=== PATIENT | female | born 1940 | race Caucasian/White ===

== ENCOUNTER 2016-08-15 13:42 | Inpatient (IN) ==
[2016-08-15] MEDS ORDERED: Ondansetron 4 MG/2 ML VIAL ONE (13:55)
[2016-08-15] MEDS ORDERED: *HR* FentaNYL (PF) 100 MCG/2 ML VIAL ONE (13:55)
[2016-08-15] MEDS ORDERED: *HR* Propofol 200 MG/20 ML VIAL IVP ONE (13:55)
[2016-08-15] MEDS ORDERED: Lidocaine -MPF 2% 2 ML VIAL ONE (13:55)
[2016-08-15] MEDS ORDERED: Lidocaine 1% 20 ML MDV ID ONE (13:57)
[2016-08-15] MEDS ORDERED: CeFAZolin Pre 2,000 MG/100 ML 2,000 MG/100 ML BAG IVPB ONE (13:57)
[2016-08-15] MEDS ORDERED: *HR* Labetalol 100 MG/20 ML MDV IVP PRN (13:58)
[2016-08-15] MEDS ORDERED: Ondansetron 4 MG/2 ML VIAL IVP ONE ×2 (13:58→16:43)
[2016-08-15] MEDS ORDERED: *HR* HYDROmorphone (PF) 1 MG/ML SYRINGE IVP PRN ×2 (13:58→18:21)
[2016-08-15] MEDS ORDERED: Ringers Solution, Lactated 1,000 ML IVC SCH ×2 (14:00→18:21)
[2016-08-15] MEDS ORDERED: *HR* Midazolam HCl 2 MG/2 ML VIAL ONE (15:07)
[2016-08-15] MEDS ORDERED: Tetracaine/PF 20 MG/2 ML AMPUL SPINA ONE (15:11)
[2016-08-15] MEDS ORDERED: Famotidine 20 MG/2 ML VIAL ONE (15:34)
[2016-08-15] MEDS ORDERED: Ketorolac 30 MG/ML VIAL ONE (16:28)
[2016-08-15] MEDS ORDERED: *HR* HYDROmorphone (PF) 1 MG/ML SYRINGE ONE (17:14)
[2016-08-15] MEDS: *HR* HYDROmorphone (PF) 1 MG/ML SYRINGE IVP PRN ×2 (17:15→17:20)
[2016-08-15 17:46] LABS: Hematocrit 41.8 % (35.3-44.9); Hemoglobin 13.9 g/dL (11.5-15.4)
[2016-08-15] MEDS ORDERED: Sennosides 8.6 MG TABLET PO PRN (18:21)
[2016-08-15] MEDS ORDERED: Naloxone 0.4 MG/ML INJ IVP PRN (18:21)
[2016-08-15] MEDS ORDERED: Ondansetron 4 MG/2 ML VIAL IVP PRN (18:21)
[2016-08-15] MEDS ORDERED: MOM Conc 10 ML UD.LIQ PO PRN (18:21)
[2016-08-15] MEDS ORDERED: Acetaminophen 325 MG TABLET PO PRN (18:21)
[2016-08-15] MEDS ORDERED: *HR* OxyCODONE Immed Rel 5 MG TABLET PO PRN (18:21)
[2016-08-15] MEDS ORDERED: Temazepam 15 MG CAPSULE PO PRN (18:21)
[2016-08-15] MEDS ORDERED: *HR* Enoxaparin 30 MG/0.3 ML SYRINGE SQ SCH (19:00)
[2016-08-15] MEDS: *HR* Enoxaparin 30 MG/0.3 ML SYRINGE SQ SCH (19:53)
[2016-08-16] MEDS: ceFAZolin 2,000 MG in D5% in Water 100 ML IVPB SCH ×2 (00:11→07:43)
[2016-08-16 03:35] LABS: Hematocrit 34.4 % (35.3-44.9)
[2016-08-16 03:38] LABS: Hemoglobin 11.8 g/dL (11.5-15.4)
[2016-08-16 03:48] LABS: BUN/Creatinine Ratio 27 (6-26); Blood Urea Nitrogen 25 mg/dL (7-20); Calcium 8.7 mg/dL (8.6-10.8); Carbon Dioxide 24 mEq/L (19-29); Chloride 100 mEq/L (98-109); Glucose 134 mg/dL (70-99); Osmolality,Calculated 284 (280-300); Potassium 4.2 mEq/L (3.5-4.5); Sodium 134 mEq/L (136-145); eGFR For African Americans > 60 (> 60); eGFR For Non-African Americans > 60 (> 60)
[2016-08-16] MEDS: *HR* Enoxaparin 30 MG/0.3 ML SYRINGE SQ SCH ×2 (05:49→17:58)
[2016-08-16] MEDS: *HR* OxyCODONE Immed Rel 5 MG TABLET PO PRN ×4 (07:42→20:55)
[2016-08-16] MEDS: hydroCHLOROthiazide 25 MG TABLET PO SCH (07:42)
[2016-08-17] MEDS: *HR* OxyCODONE Immed Rel 5 MG TABLET PO PRN ×5 (04:17→21:28)
[2016-08-17] MEDS: *HR* Enoxaparin 30 MG/0.3 ML SYRINGE SQ SCH ×2 (04:18→18:02)
[2016-08-17 04:22] LABS: Hematocrit 31.4 % (35.3-44.9); Hemoglobin 10.9 g/dL (11.5-15.4)
[2016-08-17 04:39] LABS: BUN/Creatinine Ratio 26 (6-26); Blood Urea Nitrogen 21 mg/dL (7-20); Calcium 8.1 mg/dL (8.6-10.8); Carbon Dioxide 26 mEq/L (19-29); Chloride 98 mEq/L (98-109); Glucose 135 mg/dL (70-99); Osmolality,Calculated 281 (280-300); Potassium 3.8 mEq/L (3.5-4.5); Sodium 133 mEq/L (136-145); eGFR For African Americans > 60 (> 60); eGFR For Non-African Americans > 60 (> 60)
[2016-08-17] MEDS: hydroCHLOROthiazide 25 MG TABLET PO SCH (07:25)
[2016-08-18] MEDS: *HR* OxyCODONE Immed Rel 5 MG TABLET PO PRN ×3 (02:41→10:36)
[2016-08-18] MEDS: *HR* Enoxaparin 30 MG/0.3 ML SYRINGE SQ SCH (06:36)
[2016-08-18] MEDS: hydroCHLOROthiazide 25 MG TABLET PO SCH (09:20)
[2016-08-18 11:23] VITALS: BP 142/72
[2016-08-18] MEDS ORDERED: FLU VACC QS2016-17 36MOS UP/PF 0.5 ML SYRINGE IM ONE (11:40)
== END 2016-08-18 12:17 | DRG 470 ==
LOC: SAMDAY 13:42 → 3NENU 18:24
PROVIDERS: ADMIT Orthopaedic Surgery; ATTEND Orthopaedic Surgery

== ENCOUNTER 2017-08-30 11:47 | Inpatient (IN) ==
--- NOTE | 2017-08-27 22:05 | Discharge Summary ---
<EmrekatLiana Gayle - Last Filed: 08/27/17 22:03> Date of Encounter: 08/27/17 - Discharge Diagnosis (1) Arthritis of knee, left Priority: Primary Status: Acute (2) Status post total knee replacement, left Priority: Primary Status: Acute (3) Obesity Priority: Secondary Status: Chronic Qualifiers: Obesity type: due to excess calories Obesity classification: unspecified obesity classification Serious obesity comorbidity presence: without serious comorbidity Qualified Code(s): E66.09 - Other obesity due to excess calories (4) Hypertension Priority: Secondary Status: Chronic Qualifiers: Hypertension type: essential hypertension Qualified Code(s): I10 - Essential (primary) hypertension - Hospital Course Hospital course: Ms. Oropeza is a 76 year old female - Time Spent with Patient Total time spent providing and/or coordinating discharge services: - Discharge Medications Home Medications: Acetaminophen [Tylenol] 325 mg PO Q6HR PRN 08/15/16 [History] Atorvastatin [Lipitor] 40 mg PO HS 08/15/16 [History] Metoprolol Tartrate [Lopressor] 50 mg PO TID 08/15/16 [History] hydroCHLOROthiazide [Hydrochlorothiazide] 25 mg PO QAM 08/15/16 [History] Aspirin Enteric Coated [Aspirin EC] 325 mg PO BID #20 tablet.dr 08/27/17 [Rx] OxyCODONE Immed Rel [Roxicodone 5 MG] 5 mg PO Q6HR PRN 7 Days #28 tablet [Rx] Allergies/Adverse Reactions: 3 Allergy/AdvReac Type Severity Reaction Status Date / Time No Known Allergies Allergy Verified 08/30/17 12:45 Primary care physician: Real Hopkins Jr, MD - Patient Status Disposition: Transfer Inpatient Rehab Fac Condition: Good - Discharge Instructions Follow Up With: Real Hopkins Jr, MD [Primary Care Provider] - <Zion Baker - Last Filed: 09/01/17 06:24> Orders not resulted at time of discharge: Pending orders 08/30/17 00:01 XR knee LT limited 1-2V [XR] Routine H/H [Hemoglobin and Hematocrit] [HEME] Routine Date of Encounter: 09/01/17 Time of Encounter: 06:23 - Discharge Diagnosis (1) Obesity (BMI 35.0-39.9 without comorbidity) Priority: Secondary Status: Chronic (2) Hypertension Priority: Secondary Status: Chronic Qualifiers: Hypertension type: essential hypertension Qualified Code(s): I10 - Essential (primary) hypertension (3) Arthritis of knee, left Priority: Primary Status: Chronic (4) Status post total knee replacement, left Priority: Primary Status: Acute - Hospital Course Hospital course: Ms. Oropeza is a 76 year old female Status post left total knee replacement. The patient had an uneventful postoperative course. They received antibiotics and physical therapy and were discharged in stable condition. There will follow -up in the office in 2 weeks. - Time Spent with Patient Total time spent providing and/or coordinating discharge services: Primary care physician: Real Hopkins Jr, MD - Patient Status Functional capacity at discharge: uses cane/walker Overall status at discharge: patient is progressing back to baseline
[2017-08-30] MEDS ORDERED: CeFAZolin Syr 2,000MG/20 ML 2,000 MG/20 ML SYRINGE IVPB ONE (12:06)
--- NOTE | 2017-08-30 12:11 | History & Physical Report ---
Date of Encounter: 08/30/17 Time of Encounter: 12:11 24 Hour HP Update - Instructions Instructions: If the History and Physical is less than 30 days old and was completed prior to A.M. admission and or procedure and has NOT been updated on calendar day of procedure please complete this update prior to performing procedure. - Update Patient reports changes in Medical Condition: No Changes in examination, assessment, or condition: No Changes in Medication: No Preop tests/diagnostics Reviewed: Yes Surgery Remains Indicated: Yes Consent for Planned Operative Procedure(s) Verified: Yes - Pre-Operative Checklist Preoperative Checklist Indicated: No Prophylactic Antibiotic Ordered: Yes Is VTE Prophylaxis Indicated?: Yes
[2017-08-30] MEDS ORDERED: Ringers Solution, Lactated 1,000 ML IVC SCH ×2 (12:15→16:30)
[2017-08-30] MEDS ORDERED: Famotidine 20 MG/2 ML VIAL IVP ONE (12:35)
[2017-08-30] MEDS ORDERED: Pregabalin 75 MG CAPSULE PO ONE (12:36)
--- NOTE | 2017-08-30 12:39 | Anesthesia Evaluation PreOp ---
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 08/27/17 [Rx] OxyCODONE Immed Rel [Roxicodone 5 MG] 5 mg PO Q6HR PRN 7 Days #28 tablet [Rx] 3 Allergy/AdvReac Type Severity Reaction Status Date / Time No Known Allergies Allergy Verified 08/23/17 15:44 - Meds/Allergy Pre-op Review Medications Reviewed: Yes Allergies Reviewed: Yes Beta Blockers on Current Med List: Yes (Took today 0800 Metoprolol) Anesthesia Results - Labs Laboratory Tests 08/23/17 08/23/17 15:44 15:44 Hgb 14.7 Hct 44.1 Plt Count 303 Sodium 138 Potassium 4.0 BUN 17 Creatinine 0.93 - Imaging EKG: report reviewed (SR) Anesthesia Exam O2 Sat Height 1.52 m Height 1.52 m Weight 86.183 kg Weight 86.183 kg O2 Sat by Pulse Oximetry 99 Vital Signs Temp Pulse Resp BP Pulse Ox 98.2 F 58 18 148/83 99 08/30/17 12:12 08/30/17 12:12 08/30/17 12:12 08/30/17 12:12 08/30/17 12:12 Height: 5'0 Weight: 190 lbs NPO (# of Hours): MN Pain Scale: 0 - HEENT Pupil (Motor): Pupils equal, EOMI Mallampati: III Teeth: Normal Oral Opening: Less than or equal to 3 - LASTING MACHINE OPERATOR LOC: Oriented LASTING MACHINE OPERATOR Motor: Normal RUE, Normal LUE, Normal RLE, Normal LLE, Normal Face LASTING MACHINE OPERATOR Sensory: Normal: RUE, LUE, RLE, LLE, Face - Cardiac Rhythm: Regular Murmur: None JVD: No Carotid Bruit: No - Pulmonary Breath Sounds: bilateral Clear Respiratory Effort: Symmetrical Anesthesia Assess/Plan ASA Score: 2 Modified Alvin Scale for Level of Consciousness: Cooperative, oriented, and tranquil Anesthetic Plan: Regional, MAC Monitoring Plan: Standard Monitors Recovery Plan: PACU (Discussed SAB and Adductor Canal Block, possible GA, agrees to proceed)
[2017-08-30] MEDS ORDERED: ROPIVACAINE HCL/PF 0.5% 30 ML VIAL ONE (13:49)
[2017-08-30] MEDS ORDERED: Ethanol\\Acetic Acid\\Na Ace\\Ben 1,000 ML IRRIG.SOLN IR ONE (14:02)
--- NOTE | 2017-08-30 14:43 | Anesthesia Procedures ---
Date of Encounter: 08/30/17 Time of Encounter: 12:35 Procedures: Anesthesia - Epidural/Spinal Patient ID/Chart reviewed: Yes Patient examined: Yes Supplemental Oxygen: Nasal Cannula (2) Sedation: Versed (mg): 2 Site Prep: Aseptic Technique Patient position: upright Interspace Used: L4-L5 Loss of Resistance (ALEXA): No Blood: No CSF: Yes Spinal Needle Gauge: 22 Spinal Dose: 10 mg isobaric marcaine, duramorph 0.2mg Procedure: Patient sitting, monitors placed sterile prep and drape with betadine midline L4-5 plus CSF 22 gauge spinal patient tolerared procedure well Vitals + FHT's: Vital Signs/O2 Sat/Glucose, Most Current Temp Pulse Resp BP Pulse Ox 08/30/17 14:26 62 18 122/58 96 08/30/17 14:23 55 18 127/70 96 08/30/17 14:04 54 18 155/84 97 08/30/17 12:12 98.2 F 58 18 148/83 99
[2017-08-30] MEDS ORDERED: *HR* Propofol 200 MG/20 ML VIAL IVP ONE ×2 (14:47→15:03)
[2017-08-30] MEDS ORDERED: *HR* Midazolam HCl 2 MG/2 ML VIAL ONE (14:47)
[2017-08-30] MEDS ORDERED: Lidocaine -MPF 2% 2 ML VIAL ONE (14:47)
[2017-08-30] MEDS ORDERED: *HR* PHENYLEPHRINE 1,000 MCG/10 ML SYRINGE IVP ONE (14:50)
--- NOTE | 2017-08-30 14:52 | Anesthesia Procedures ---
Date of Encounter: 08/30/17 Time of Encounter: 12:35 Procedures: Anesthesia - Nerve Block Procedure Date: 08/30/17 Time: 14:10 Pre-op Diagnosis: Left Knee OA Surgical Procedure: Left TKA Checklist: Correct Patient Identifier Correct side: Left Blood Thinner: No Monitor Applied: EKG, BP, Pulse Oximetry Sedation: Versed (mg): 2 Indication: Post Op Analgesia Pre-op Neuro Deficits: No Block Type: Other (Adductor Canal Block) Catheter placed: No Depth at skin (cm): 3 Sterile Technique: Yes Ultrasound used: Yes Anatomy identified: Yes Visual spread of Local: Yes Neuro Stimulation: No Blood on Needle Aspiration: No Smooth Injection of Local: Yes Pain with Injection of Local: No Prep: Chlorhexadine Needle: 21 x 100 mm Stimuplex Local: Ropivacaine (0.5%) Volume (cc): 30 Number of Attempts: 1 Complications: None/effective block Vitals: Vital Signs/O2 Sat/Glucose, Most Current Temp Pulse Resp BP Pulse Ox 08/30/17 14:26 62 18 122/58 96 08/30/17 14:23 55 18 127/70 96 08/30/17 14:04 54 18 155/84 97 08/30/17 12:12 98.2 F 58 18 148/83 99
--- NOTE | 2017-08-30 15:08 | Orthopedic Operative Note ---
Date of procedure: 08/30/17 Pre-op diagnosis: Left knee arthritis Post-op diagnosis: same Procedure: Procedure: Left Total knee replacement Estimated blood loss: 200 cc Hardware: Metal and polyethylene replacement. Arthrex Femur: 4 Tibia: 4 PS insert: 16 Patella: 37 Exam Under anesthesia: Loss of full extension 20 degrees no instability Procedural Notes: Grade 4 arthritic changes all 3 compartments. Operative procedure: The patient was brought to the operating room and placed on the operating room table. After general anesthesia was administered the operative knee was examined. Findings were noted in the exam under anesthesia. The operative extremity was prepped and draped in sterile surgical fashion. The patient received IV antibiotics prior to skin incision. A standard midline incision was made centered over the patella. The incision was made through the skin and subcutaneous tissue. A medial parapatellar tendon approach was performed. Care was taken to preserve tissue along the medial aspect of the patella. And to protect the patella tendon. The deep MCL was released off the medial tibia. The infra patella fat pad was excised. Knee was brought into flexion. Grade 4 arthritic changes all 3 compartments. The entry hole was made for the intramedullary femoral guide. The guide was seated in 6 degrees of valgus. Anterior cut was made followed by the distal cut. The ACL the PCL the medial and the lateral menisci were excised. The tibia was subluxed forward. The entry hole was made for the intramedullary tibial guide. Guide was seated to resect 2 mm off the more abnormal side. The knee was brought into flexion the distal femur was sized to a 4. The femoral guide was seated, the anterior cut was made followed by the posterior condylar cut, followed by the chamfer cuts. The finishing guide was seated the box cut was made and the lug holes were drilled. The tibia was sized to a 4 the tibial tray was seated and prepared with the large drill followed by the fin cutter. Trial reduction revealed full extension no varus valgus instability with the appropriate 16 PS [place]. The patella was everted and cut was made at the level of the insertion of the quadriceps and patella tendon. The patella was sized 37 the guide was seated and the lug holes are drilled. Trial reduction revealed excellent patella tracking. All trial components were removed all bony surfaces were irrigated. The tibia was cemented first followed by the femur. The 16 PS [place] was seated and the knee was brought into full extension. The patella was cemented and held in place with the patellar holding clamp. After the cement had hardened, the knee sat for 2 minutes with a antibacterial solution. The knee was closed by the PA. The knee was then irrigated out with 2 L of pulse irrigation. The extensor mechanism was closed with #2 FiberWire suture and #2 PDS suture. The subcutaneous tissue was then irrigated and closed deep with #1 PDS suture superficially with 0 PDS suture and skin was closed with skin shelby. The patient was then placed in a sterile dressing and a postoperative brace extubated and transferred to recovery room in stable condition. Anesthesia: spinal Surgeon: Zion Baker Was there an railway yard assistant present: Yes Copper Plater: Liana Singh Estimated blood loss (cc): 200 Condition: stable Disposition: PACU
[2017-08-30] MEDS ORDERED: Naloxone 0.4 MG/ML INJ IVP PRN ×2 (15:25→16:30)
[2017-08-30] MEDS ORDERED: Ondansetron 4 MG/2 ML VIAL IVP PRN ×2 (15:25→16:30)
--- NOTE | 2017-08-30 16:24 | Physician Discharge Referral ---
ExtendedCare Referral Info Transfer To: [facility] Provider in Charge: Provider in Charge after Transfer: PCP Institutional Level of Care: Skilled - Diagnosis (1) Arthritis of knee, left Priority: Primary Status: Chronic (2) Status post total knee replacement, left Priority: Primary Status: Acute (3) Obesity Status: Chronic (4) Hypertension Status: Chronic - Transfer Medications Prescriptions: OxyCODONE Immed Rel [Roxicodone 5 MG] 5 mg PO Q6HR PRN 7 Days #28 tablet PRN Reason: Severe Pain Aspirin Enteric Coated [Aspirin EC] 325 mg PO BID #20 tablet. Home Medications: Acetaminophen [Tylenol] 325 mg PO Q6HR PRN 08/15/16 [History] Atorvastatin [Lipitor] 40 mg PO HS 08/15/16 [History] Metoprolol Tartrate [Lopressor] 50 mg PO TID 08/15/16 [History] hydroCHLOROthiazide [Hydrochlorothiazide] 25 mg PO QAM 08/15/16 [History] Aspirin Enteric Coated [Aspirin EC] 325 mg PO BID #20 tablet. 08/27/17 [Rx] OxyCODONE Immed Rel [Roxicodone 5 MG] 5 mg PO Q6HR PRN 7 Days #28 tablet [Rx] Allergies/Adverse Reactions: 3 Allergy/AdvReac Type Severity Reaction Status Date / Time No Known Allergies Allergy Verified 08/30/17 12:45 - Respiratory Orders None Smoking Cessation: Smoking cessation has been advised. For more information, call the [place] Tobacco Quit Line at 7-532-OYUO-NOW. - Ancillary Orders May use pressure relief devices daily prn, May go on ZACHARIAH w/family/respon constitution party w /meds at nurse discretion PRN, May consult with Dentist, Manager Of Pmo, Astronaut Mission Specialist PRN - Mobility Orders Chair, Ambulate - Rehabiliation Orders Rehab Potential: Good Rehab Orders: ROM Exercises, Evaluation for Physical Therapy, Evaluation for Occupational Therapy - Treatments List/Other: Opsite dressing, leave intact until first post-operative visit. If dressing becomes >50% saturated, contact office, remove dressing and place appropriate dressing in its place. Do not allow for dressing to get wet. Zipline dressing in place, plan to remove at POD#14-16. PT: Total Joint Precautions x 6 weeks Apply ICE/cold therapy wrap 3-6x/day for 20 minutes at a time. Encourage ambulation throughout the day and incentive spirometer 10x/hour. Elevate affected extremity above heart as tolerated. Brace: Knee immobilizer at night until first post-operative appointment. - Diet Orders Regular CERTIFICATION: I certify that the transfer of the above named patient to an Extended Care Facility is necessary for the continuing treatment of the diagnosis listed. The above information is true and accurate reflection of patient's current condition. Confidential - Redisclosure prohibited without a patient's written consent.
[2017-08-30] MEDS ORDERED: *HR* OxyCODONE Immed Rel 5 MG TABLET PO PRN (16:30)
[2017-08-30] MEDS ORDERED: Sennosides 8.6 MG TABLET PO PRN (16:30)
[2017-08-30] MEDS ORDERED: Temazepam 15 MG CAPSULE PO PRN (16:30)
[2017-08-30] MEDS ORDERED: MOM Conc 10 ML UD.LIQ PO PRN (16:30)
--- NOTE | 2017-08-30 16:36 | Anesthesia Evaluation Post Op ---
Date of Encounter: 08/30/17 Time of Encounter: 15:55 Notes: Patient's vital signs have been reviewed. Patient is stable postoperatively and has adequately recovered from anesthesia, unless otherwise noted. Patient is determined to have stable airway patency and respiratory function including respiratory rate and oxygen saturation. Patient has a stable heart rate, blood pressure and adequate hydration. Patients mental status is acceptable. Patients temperature is appropriate. Pain and nausea are adequately controlled.
[2017-08-30 16:59] LABS: Hematocrit 35.3 % (35.3-44.9); Hemoglobin 11.8 g/dL (11.5-15.4)
[2017-08-30] MEDS: CeFAZolin Premix DUPLEX 2,000 MG/50 ML BAG IVPB SCH (20:03)
[2017-08-31] MEDS: CeFAZolin Premix DUPLEX 2,000 MG/50 ML BAG IVPB SCH (04:26)
--- NOTE | 2017-08-31 05:54 | Orthopedics Progress Note ---
Date of Encounter: 08/31/17 Time of Encounter: 05:53 - Assessment and Plan (1) Obesity (BMI 35.0-39.9 without comorbidity) Current Visit: Yes Status: Chronic (2) Hypertension Current Visit: No Status: Chronic Qualifiers: Hypertension type: essential hypertension Qualified Code(s): I10 - Essential (primary) hypertension (3) Arthritis of knee, left Current Visit: No Status: Chronic (4) Status post total knee replacement, left Current Visit: No Status: Acute Subjective Interval history: Patient was seen this morning doing well without complaints. Afebrile vital signs stable. Operative extremity: Neurovascularly intact Dressing bloody, changed today Calves nontender Assessment and plan: Continue with postoperative care hematocrit 35 Objective Vital signs: Vital Signs Temp Pulse Resp BP Pulse Ox 08/31/17 03:27 98.9 F 73 16 143/82 93 08/30/17 22:39 97.6 F 59 16 141/76 100 08/30/17 20:09 95 08/30/17 19:35 97.4 F L 52 14 102/68 93 08/30/17 18:52 97.4 F L 53 16 115/68 93 08/30/17 18:25 97.4 F L 56 16 131/70 95 08/30/17 17:42 97.3 F L 57 15 121/71 96 08/30/17 17:01 97.3 F L 47 16 126/77 96 08/30/17 16:35 97.3 F L 48 15 107/63 94 08/30/17 16:01 97.2 F L 52 18 109/60 95 08/30/17 15:51 54 18 93/55 98 08/30/17 15:41 55 18 82/50 99 08/30/17 15:31 97.2 F L 60 16 92/47 99 08/30/17 14:26 62 18 122/58 96 08/30/17 14:23 55 18 127/70 96 08/30/17 14:04 54 18 155/84 97 08/30/17 12:12 98.2 F 58 18 148/83 99 Intake and Output 08/30/17 08/30/17 08/31/17 15:59 23:59 07:59 Intake Total 100 / 100 200 / 200 Output Total 200 / 200 100 / 100 150 / 150 Balance -200 / -200 0 / 0 50 / 50 Intake: IV Fluids 50 / 50 Ancef Premix DUPLEX 2,000 mg In 50 / 50 50 ml @ 100 mls/hr IVPB Q8H [facility] Rx#:[id number] Oral 50 / 50 200 / 200 Output: Urine 0 / 0 150 / 150 Emesis 100 / 100 Estimated Blood Loss 200 / 200 Other: Weight 86.183 kg - Labs CBC & BMP: 08/30/17 16:08 - VTE Documentation of Mechanical Device: Venous foot pump, device Consult Discharge Plan - Plan Referrals: Real Hopkins Jr, MD [Primary Care Provider] - Prescriptions: Aspirin Enteric Coated [Aspirin EC] 325 mg PO BID #20 tablet. OxyCODONE Immed Rel [Roxicodone 5 MG] 5 mg PO Q6HR PRN 7 Days #28 tablet PRN Reason: Severe Pain
[2017-08-31 07:28] LABS: Hemoglobin 12.4 g/dL (11.5-15.4)
[2017-08-31] MEDS: hydroCHLOROthiazide 25 MG TABLET PO SCH (09:10)
[2017-08-31 09:44] LABS: BUN/Creatinine Ratio 26 (6-26); Blood Urea Nitrogen 23 mg/dL (8-23); Calcium 8.7 mg/dL (8.6-10.3); Carbon Dioxide 27 mEq/L (23-29); Chloride 103 mEq/L (98-107); Glucose 151 mg/dL (70-105); Osmolality,Calculated 295 (280-300); Sodium 139 mEq/L (136-145); eGFR For African Americans > 60 (> 60); eGFR For Non-African Americans > 60 (> 60)
[2017-08-31] MEDS: *HR* OxyCODONE Immed Rel 5 MG TABLET PO PRN ×2 (15:46→20:21)
[2017-09-01] MEDS: *HR* OxyCODONE Immed Rel 5 MG TABLET PO PRN ×4 (02:05→20:30)
[2017-09-01 05:14] LABS: Hematocrit 32.9 % (35.3-44.9); Hemoglobin 11.2 g/dL (11.5-15.4)
[2017-09-01 05:30] LABS: BUN/Creatinine Ratio 25 (6-26); Blood Urea Nitrogen 18 mg/dL (8-23); Calcium 8.8 mg/dL (8.6-10.3); Carbon Dioxide 29 mEq/L (23-29); Chloride 96 mEq/L (98-107); Glucose 153 mg/dL (70-105); Osmolality,Calculated 281 (280-300); Potassium 3.5 mEq/L (3.5-5.1); Sodium 133 mEq/L (136-145); eGFR For African Americans > 60 (> 60); eGFR For Non-African Americans > 60 (> 60)
--- NOTE | 2017-09-01 06:24 | Orthopedics Progress Note ---
Date of Encounter: 09/01/17 Time of Encounter: 06:24 - Assessment and Plan (1) Obesity (BMI 35.0-39.9 without comorbidity) Current Visit: Yes Status: Chronic (2) Hypertension Current Visit: No Status: Chronic Qualifiers: Hypertension type: essential hypertension Qualified Code(s): I10 - Essential (primary) hypertension (3) Arthritis of knee, left Current Visit: No Status: Chronic (4) Status post total knee replacement, left Current Visit: No Status: Acute Subjective Interval history: Patient was seen this morning doing well without complaints. Afebrile vital signs stable. Operative extremity: Neurovascularly intact Dressing bloody, changed today Calves nontender Assessment and plan: Continue with postoperative care hematocrit 32 discharge tomorrow Objective Vital signs: Vital Signs Temp Pulse Resp BP Pulse Ox 09/01/17 04:56 99.3 F 64 17 174/94 94 08/31/17 23:32 98.8 F 66 18 161/79 97 08/31/17 18:58 100.2 F H 66 15 145/70 98 08/31/17 17:19 99.4 F 86 18 136/74 94 08/31/17 15:45 68 18 145/77 08/31/17 11:00 99.1 F 80 18 126/77 97 08/31/17 07:29 98.0 F 70 16 130/74 96 Intake and Output 08/31/17 08/31/17 09/01/17 15:59 23:59 07:59 Intake Total 950 / 950 Output Total 250 / 250 Balance -250 / -250 950 / 950 Intake: Oral 950 / 950 Output: Urine 250 / 250 Other: # Voids 1 - Labs CBC & BMP: 09/01/17 04:38 09/01/17 04:38 Labs: Abnormal lab results Hgb 11.2 g/dL (11.5-15.4) L 09/01/17 04:38 Hct 32.9 % (35.3-44.9) L 09/01/17 04:38 Sodium 133 mEq/L (136-145) L 09/01/17 04:38 Chloride 96 mEq/L (98-107) L 09/01/17 04:38 Glucose 153 mg/dL (70-105) H 09/01/17 04:38 - VTE Documentation of Mechanical Device: Venous foot pump, device Consult Discharge Plan - Plan Referrals: Real Hopkins Jr, MD [Primary Care Provider] -
[2017-09-01] MEDS: *HR* Enoxaparin 30 MG/0.3 ML SYRINGE SQ SCH ×2 (06:35→17:53)
[2017-09-01] MEDS: hydroCHLOROthiazide 25 MG TABLET PO SCH (09:53)
--- NOTE | 2017-09-01 14:09 | Event Note ---
Date of Encounter: 09/01/17 Time of Encounter: 14:09 PCR - POD#1 - LEFT TKR 08/30/17 Patient seen at bedside. Labs reviewed. Pain control: adequate now. Participating in PT All questions and concerns addressed. Educated on use of incentive spirometer. Encouraged ambulation and proper hydration. Patient educated on post-operative restrictions and post-operative care. Addressed: Dressing c/d/i - no evidence of bleeding noted. Keep opsite on and intact. Discharge plan: Patient will likely require ECF both continuities placed - MONDAY.
[2017-09-02] MEDS: *HR* OxyCODONE Immed Rel 5 MG TABLET PO PRN ×5 (01:06→21:04)
[2017-09-02] MEDS: *HR* Enoxaparin 30 MG/0.3 ML SYRINGE SQ SCH ×2 (04:59→16:55)
[2017-09-02] MEDS: hydroCHLOROthiazide 25 MG TABLET PO SCH (07:41)
--- NOTE | 2017-09-02 15:51 | Orthopedics Progress Note ---
Date of Encounter: 09/02/17 Time of Encounter: 15:50 Subjective Principal diagnosis: Postoperative day #2 Interval history: Patient comfortable without complaints Left knee: Mild swelling and mild induration ecchymosis, Mild swelling calf nontender negative Homans sign NVintact distally Postoperative #2, stable Discharge planning to ECF tomorrow Objective Vital signs: Vital Signs Temp Pulse Resp BP Pulse Ox 09/02/17 10:43 98.1 F 64 16 133/87 98 09/02/17 06:59 98.1 F 73 16 139/73 96 09/01/17 23:52 98.0 F 67 19 162/80 98 09/01/17 20:02 98.2 F 74 18 148/78 96 09/01/17 15:53 99.0 F 69 16 159/88 95 Intake and Output 09/01/17 09/02/17 09/02/17 23:59 07:59 15:59 Intake Total 500 / 500 100 / 100 720 / 720 Balance 500 / 500 100 / 100 720 / 720 Intake: Oral 500 / 500 100 / 100 720 / 720 Other: Meal Lunch Percent of Meal Consumed 70% # Voids 1 1 - Labs CBC & BMP: 09/01/17 04:38 09/01/17 04:38 Labs: Abnormal lab results Hgb 11.2 g/dL (11.5-15.4) L 09/01/17 04:38 Hct 32.9 % (35.3-44.9) L 09/01/17 04:38 Sodium 133 mEq/L (136-145) L 09/01/17 04:38 Chloride 96 mEq/L (98-107) L 09/01/17 04:38 Glucose 153 mg/dL (70-105) H 09/01/17 04:38 - VTE Documentation of Mechanical Device: Venous foot pump, device Consult Discharge Plan - Plan Referrals: Real Hopkins Jr, MD [Primary Care Provider] -
[2017-09-03] MEDS: *HR* OxyCODONE Immed Rel 5 MG TABLET PO PRN ×2 (02:25→07:18)
[2017-09-03] MEDS: *HR* Enoxaparin 30 MG/0.3 ML SYRINGE SQ SCH (06:10)
[2017-09-03 06:40] VITALS: BP 169/73
[2017-09-03] MEDS: hydroCHLOROthiazide 25 MG TABLET PO SCH (07:17)
== END 2017-09-03 10:05 | DRG 470 ==
LOC: SAMDAY 11:47 → 3NENU 16:49
PROVIDERS: ADMIT Orthopaedic Surgery; ATTEND Orthopaedic Surgery